=== PATIENT | female | born 1965 | race Caucasian/White ===

== ENCOUNTER 2020-03-09 10:58 | Emergency (ER) | payer BC, SELFPAY ==
[2020-03-09 11:08] VITALS: BP 157/101; PULSE 68; RESP 20; TEMP 37; O2SAT 100
--- NOTE | 2020-03-09 11:24 | ED.GENADULT ---
HPI - General Adult General Chief complaint: Skin/Abscess/Foreign Body Stated complaint: pos fb in rt thumb Time Seen by Provider: 03/09/20 11:24 Source: patient and RN notes reviewed Mode of arrival: ambulatory Limitations: no limitations History of Present Illness HPI narrative: 54-year-old female presents with complaints of RT 1st (thumb) finger pain, redness, swelling, and possible foreign body for the past 7 days. Myrna reports she was working with wood and caught RT thumb on it, now believes she has a splint embedded. Neosporin, alcohol, and peroxide without relief. Denies numbness or tingling. No weakness of finger. Denies fever or chills. Denies immobility. Exacerbation is movement and palpation of finger. Relieving factor is rest. Dominant hand is RIGHT HAND. Denies break in skin or drainage. LMP none in 25 years due to [employer]. Remains active. The patient reports she have not been diagnosed with COVID-19. The patient reports she is not waiting for the results of a COVID-19 lab test. The patient reports she do not have fever, weakness, or fatigue. The patient reports she do not have a new or worsening cough or shortness of breath. Denies chest pain. The patient reports she do not have any rhinorrhea, congestion, sore throat, loss of taste, nausea, vomiting, abdominal pain, and diarrhea. Tolerating po intake well. Denies recent traveling. Denies concerns for COVID-19 or exposures been home with limited outdoor exposure except for essential household needs, work, and return home. At this time, patient is not suspected of having COVID-19. Some parts of this dictation were generated by voice recognition software and may contain typographical and/or grammatical inaccuracies. Related Data Home Medications Medication Instructions Recorded Confirmed amlodipine 03/09/20 lisinopril 03/09/20 meloxicam 03/09/20 norethindrone (contraceptive) mg 03/09/20 oxybutynin chloride mg PO 03/09/20 pravastatin 03/09/20 Allergies Allergy/AdvReac Type Severity Reaction Status Date / Time No Known Allergies Allergy Verified 03/09/20 11:24 Review of Systems Review of Systems: Narrative: CONSTITUTIONAL: Denies fever, chills, sweats. EYES: Denies visual changes, redness, discharge. ENT: Denies rhinorrhea, congestion, sore throat, otalgia. CARDIOVASCULAR: Denies chest pain, palpitations, edema. RESPIRATORY: Denies dyspnea, wheezing, cough. GASTROINTESTINAL: Denies abdominal pain, nausea, vomiting, diarrhea. SKIN: Denies rash or itching. MUSCULOSKELETAL: Denies acute back pain or myalgia. Complains of RT 1st (thumb) finger with swelling, redness, tenderness, and possible embedded foreign body. NEUROLOGIC: Denies numbness or focal weakness. PSYCHIATRIC: Denies anxiety or depression. All systems reviewed & are unremarkable except as noted in HPI and below [facility] Past Medical History Medical History (Updated 03/11/20 @ 11:09 by CLEMENTINA Wheatley) Hypercholesteremia Hypertension Surgical History Surgical History (Updated 03/09/20 @ 11:33 by CLEMENTINA Wheatley) History of endometrial ablation Family History Family History (Updated 03/09/20 @ 11:34 by CLEMENTINA Wheatley) Father Acute myocardial infarction First CA at 34 at 47 due to CA Mother Lung cancer Social History Social History (Updated 03/09/20 @ 11:35 by CLEMENTINA Wheatley) Smoking status: Never smoker Tobacco type: cigarettes Second hand tobacco smoke exposure: No Alcohol intake: current Substance use: never Living arrangements: with family Occupation/Education: occupation Gender identity (if verbalized by the patient): Female Comments At time of signature, agree with nurse past medical, surgical, social, and family history. There is no relevant family history pertinent to the presenting complaint. Exam Narrative: Exam Narrative: GENERAL: This is a
== END 2020-03-09 12:01 | disposition home or self-care (01) ==
PROVIDERS: Emergency Provider Nurse Practitioner Family
DX: L03.011 Cellulitis of right finger (principal); E78.00 Pure hypercholesterolemia, unspecified; I10 Essential (primary) hypertension
CPT/HCPCS: 99213; G0463

== ENCOUNTER → 2022-10-01 16:14 | Outpatient (CLI) | payer BC, SELFPAY ==
--- NOTE | ~2022-10-01 | XR_ITS ---
EXAM: XR shoulder RT min 2V, XR shoulder LT min 2V DATE: 10/01/2022 17:42 HISTORY: Pain in unspecified joint, Enthesopathy, Myalgia . COMPARISON: None available. FINDINGS: Normal mineralization. No fracture or dislocation. No lytic or blastic lesion. AC joint an d glenohumeral joint degenerative changes, moderate on the right and mild on the left. No erosion or periosteal change. Soft tissues within normal limits. 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 Reviewed, dictated and finalized at location K. 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
--- NOTE | ~2022-10-01 | XR_ITS ---
EXAM: XR hand LT min 3V, XR hand RT min 3V DATE: 10/01/2022 17:42 HISTORY: Pain in unspecified joint, Enthesopathy, Myalgia . COMPARISON: None available. FINDINGS: Normal mineralization. No fracture or dislocation. No lytic or blastic lesion. Mild scatte red degenerative changes, most notably in the interphalangeal joints, first through third MCP joints, and bilateral radiocarpal, triscaphe and trapeziometacarpal joints. No erosion or periosteal change. Soft tissues within normal limits. IMPRESSION: Mild polyarticular osteoarthritis of the hands. Reviewed, dictated and finalized at location K. IMPRESSION: Mild polyarticular osteoarthritis of the hands.
--- NOTE | ~2022-10-01 | XR_ITS ---
EXAM: [id number] DATE: 10/01/2022 17:42 HISTORY: Pain in unspecified joint, Enthesopathy, Myalgia . COMPARISON: None available. FINDINGS: Craniocervical association and atlantoaxial joint are aligned. No prevertebral soft tissue swelling. Vertebral bodies are aligned. Vertebral body heights are maintained. Multilevel mild disc space narrowing and marginal osteophytosis. Multilevel mild facet sclerosis/hypertrophy. IMPRESSION: Mild multilevel degenerative disc disease and facet arthropathy. Otherwise unremarkable c ervical spine radiograph findings. Reviewed, dictated and finalized at location K. IMPRESSION: Mild multilevel degenerative disc disease and facet arthropathy. Ot herwise unremarkable cervical spine radiograph findings.
== END ==
DX: M77.9 Enthesopathy, unspecified (principal); M79.10 Myalgia, unspecified site; Z51.81 Encounter for therapeutic drug level monitoring; M50.30 Other cervical disc degeneration, unspecified cervical region; M19.041 Primary osteoarthritis, right hand; M19.042 Primary osteoarthritis, left hand; M19.011 Primary osteoarthritis, right shoulder; M19.012 Primary osteoarthritis, left shoulder
CPT/HCPCS: 72040; 73030; 73130